=== PATIENT | female | born 1980 | race Caucasian/White ===

== ENCOUNTER → 2017-08-28 | Day surgery (SDC) | payer OTHER ==
[~2017-08-28] VITALS: Ht 162.5 cm; Wt 96.2 kg
[~2017-08-28] MED LIST: PERCOCET 325 MG1 TA2 PO; PRILOSEC40 MG PO; ZYRTEC10 MG PO
--- NOTE | ~2017-08-28 | O ---
[place], [place] OPERATIVE NOTE NAME: SUZETTE CONNORS UNIT #: [id number] ROOM: DOCTOR: LANETTE PHILLIP DPM BIRTHDATE: [birth year] DOS: 08/28/2017 SURGEON: Lanette Phillip DPM PREOPERATIVE DIAGNOSIS: Painful verruca 4 lesions, left foot. POSTOPERATIVE DIAGNOSIS: Painful verruca 4 lesions, left foot. PROCEDURE: Excision of verruca 4 lesions, left foot. ANESTHESIA: LMAC. INJECTABLES: 8 mL of 0.5% Marcaine plain. ESTIMATED BLOOD LOSS: 1 mL. COMPLICATIONS: None. PATHOLOGY: 4 lesions, left heel. DESCRIPTION OF PROCEDURE: After appropriate preoperative evaluation, the patient was brought in the OR and placed on the OR table in supine position. Anesthesia was then administered per anesthesia record. Next, the left foot and ankle were prepped and draped in usual sterile manner and left foot was lowered to the surgical field. Attention directed to plantar left heel where there was noted to be 4 lesions present. At this time, 8 mL of 0.5% Marcaine plain was infiltrated in the area for in-field block fashion. Next, using a 15 blade and pickup, the areas were circumscribed and removed down to the level of the basement membrane. A Bovie was used to cauterize these areas and a curette was used to remove any necrotic tissue. The areas were then cauterized again. The 4 lesions removed completely and again taking care not to puncture through the basement membrane. Adaptic, 4 x 4s, and Kerlix was applied to the area. The patient tolerated procedure and anesthesia well and left the OR with vital signs stable and intact and transferred to the recovery room. She will follow up in the office in 1 week's time. Start daily dressing changes with antibiotic ointment and a light dressing on Monday. Advil or Tylenol as needed for discomfort. [place], [place] OPERATIVE NOTE NAME: SUZETTE CONNORS EDIT #: [id number] UNIT #: [id number] ROOM: DOCTOR: LANETTE PHILLIP DPM BIRTHDATE: [birth year] LANETTE PHILLIP DPM CM:OPRECORD:OPERATIVE NOTE 1200 [id number] LANETTE PHILLIP DPM 09/04/17 0838 interface
[2017-08-28 11:55] VITALS: BP 107/66
[2017-08-28 12:10] VITALS: BP 115/81
[2017-08-28 12:26] VITALS: BP 115/86
== END | disposition home or self-care (01) ==
LOC: SDC 08-23 10:15
DX: B07.0 Plantar wart (principal); Z88.0 Allergy status to penicillin; K21.9 Gastro-esophageal reflux disease without esophagitis; Z90.710 Acquired absence of both cervix and uterus; Z79.899 Other long term (current) drug therapy; F17.210 Nicotine dependence, cigarettes, uncomplicated

== ENCOUNTER 2019-11-24 23:45 | Emergency (ER) | payer BC ==
[~2019-11-24] VITALS: Ht 162.5 cm; Wt 81.6 kg
[2019-11-25 01:04] LABS: BASO % 0.4 % (0.0-1.0); EOS # 0.2 10*3/uL (0.0-0.4); EOS % 1.6 % (1.0-4.0); LYMPH # 2.5 10*3/uL (1.3-4.4); LYMPH % 26.3 % (27.0-41.0); MEAN CELL VOLUME 93.1 fl (81.0-99.0); MEAN CORPUSCULAR HGB 30.5 pg (27.0-31.0); MEAN CORPUSCULAR HGB CONC 32.8 g/dl (33.0-37.0); MEAN PLATELET VOLUME 10.3 fl (9.6-12.3); MONO # 0.4 10*3/uL (0.1-1.0); MONO % 4.7 % (3.0-9.0); NEUT # 6.2 10*3/uL (2.3-7.9); NEUT % 66.7 % (47.0-73.0); PLATELET COUNT AUTOMATED 253 10*3/uL (130-400); RED BLOOD COUNT 4.62 10*6/uL (4.10-5.10); RED CELL DISTRI WIDTH 13.1 % (0-14.5); WHITE BLOOD COUNT 9.3 10*3/uL (4.8-10.8)
[2019-11-25 01:07] LABS: LIPASE 175 U/L (73-393)
[2019-11-25 01:18] LABS: ALBUMIN 3.5 gm/dl (3.1-4.5); ALKALINE PHOSPHATASE 75 U/L (45-117); BUN 13 mg/dl (7-24); CHLORIDE 108 mmol/L (98-107); CREATININE 0.81 mg/dL (0.55-1.02); POTASSIUM 3.9 mmol/L (3.5-5.1); SGOT/AST 14 IU/L (3-35); SGPT/ALT 30 U/L (12-78); SODIUM 141 mmol/L (136-145); TOTAL PROTEIN 6.8 gm/dL (6.4-8.2)
[2019-11-25 03:15] LABS: BILIRUBIN NEGATIVE (NEGATIVE); BLOOD NEGATIVE (NEGATIVE); CLARITY CLOUDY (CLEAR); COLOR YELLOW (YELLOW); GLUCOSE NEGATIVE (NEGATIVE); KETONE NEGATIVE (NEGATIVE); NITRITE NEGATIVE (NEGATIVE); PH 6.5 (5.0-9.0); SPECIFIC GRAVITY 1.015 (1.005-1.030); UROBILINOGEN 0.2 E.U./dl (0.2-1.0)
[2019-11-25 03:19] LABS: LEUKO ESTERASE TRACE (NEGATIVE)
== END 2019-11-25 08:11 | disposition home or self-care (01) ==
LOC: ED 23:45
PROVIDERS: Nurse Practitioner Family
DX: D21.9 Benign neoplasm of connective and other soft tissue, unspecified (principal); K21.9 Gastro-esophageal reflux disease without esophagitis; Z88.0 Allergy status to penicillin; Z79.899 Other long term (current) drug therapy

== ENCOUNTER 2024-11-26 00:21 | Emergency (ER) | payer OTHER ==
[~2024-11-26] VITALS: Ht 162.5 cm; Wt 90.7 kg
[2024-11-26] MEDS ORDERED: Ondansetron Hydrochloride 4 MG TAB SL ONE (01:15)
[2024-11-26] MEDS ORDERED: Acetaminophen/Hydrocodone 5 MG/325 MG TABLET PO ONE (01:15)
[2024-11-26] MEDS ORDERED: HYDROCODONE-AC1 EAC1 PO (04:03)
[2024-11-28] MEDS ORDERED: IBU800 MG PO (12:48)
== END 2024-11-26 04:34 | disposition home or self-care (01) ==
LOC: ED 00:21
DX: S52.041A Displaced fracture of coronoid process of right ulna, initial encounter for closed fracture (principal); S52.101A Unspecified fracture of upper end of right radius, initial encounter for closed fracture; Z88.0 Allergy status to penicillin; W19.XXXA Unspecified fall, initial encounter; Y93.89 Activity, other specified; Y92.89 Other specified places as the place of occurrence of the external cause; Y99.8 Other external cause status

== ENCOUNTER → 2024-11-27 | Outpatient (CLI) | payer OTHER ==
[~2024-11-27] MED LIST changes: +HYDROCODONE-AC1 EAC1 PO; +IBU800 MG PO
== END | disposition home or self-care (01) ==
LOC: CT 11:25
PROVIDERS: ATTEND Orthopaedic Surgery
DX: S52.091A Other fracture of upper end of right ulna, initial encounter for closed fracture (principal); M79.89 Other specified soft tissue disorders; X58.XXXA Exposure to other specified factors, initial encounter; Y93.89 Activity, other specified; Y92.89 Other specified places as the place of occurrence of the external cause; Y99.8 Other external cause status

== ENCOUNTER → 2024-12-03 | Day surgery (SDC) | payer OTHER ==
[2024-11-29 17:27] LABS: BUN 12 mg/dl (9-23)
[~2024-12-03] VITALS: Ht 162.5 cm; Wt 90.7 kg
[~2024-12-03] MED LIST changes: +ACETAMINOPHEN 100 ML IV ONE; +Dexamethasone Sodium Phospha 4 MG/ML VIAL IV ONE; +LIDOCAINE HCL/EPINEPHRINE 50 ML VIAL ONE; +Lidocaine Hydrochloride 5 ML VIAL IV ONE; +Midazolam Hydrochloride 2 MG/2 ML VIAL IV ONE; +Ondansetron Hydrochloride 4 MG/2 ML VIAL IV ONE; +PROPOFOL 200 MG/20 ML VIAL IV ONE; +Phenylephrine Hydrochloride 1 MG/10 ML SYRINGE IV ONE; +Ropivacaine Hydrochloride 5 MG/ML 20 ML AMP IJ ONE; +SEVOFLURANE 250 ML BOT INH ONE; +SODIUM CHLORIDE 0.9% 1,000 ML IV ONE; +SODIUM CHLORIDE 0.9% 1,000 ML IV SCH
[2024-12-03 07:30] VITALS: BP 111/74
[2024-12-03 11:26] VITALS: BP 121/71
[2024-12-03 11:41] VITALS: BP 131/92
[2024-12-03 11:56] VITALS: BP 113/55
[2024-12-03 12:11] VITALS: BP 118/66
[2024-12-03 12:26] VITALS: BP 133/87
== END | disposition home or self-care (01) ==
LOC: SDC 11-29 13:15
PROVIDERS: ATTEND Orthopaedic Surgery
DX: S52.021A Displaced fracture of olecranon process without intraarticular extension of right ulna, initial encounter for closed fracture (principal); S52.201A Unspecified fracture of shaft of right ulna, initial encounter for closed fracture; S52.124A Nondisplaced fracture of head of right radius, initial encounter for closed fracture; K21.9 Gastro-esophageal reflux disease without esophagitis; G43.909 Migraine, unspecified, not intractable, without status migrainosus; F17.200 Nicotine dependence, unspecified, uncomplicated; Z88.0 Allergy status to penicillin; Z79.1 Long term (current) use of non-steroidal anti-inflammatories (NSAID); Z79.899 Other long term (current) drug therapy; X58.XXXA Exposure to other specified factors, initial encounter; Y93.89 Activity, other specified; Y92.89 Other specified places as the place of occurrence of the external cause; Y99.8 Other external cause status

== ENCOUNTER → 2024-12-11 | Outpatient (CLI) | payer OTHER ==
[~2024-12-11] MED LIST changes: -ACETAMINOPHEN 100 ML IV ONE; -Dexamethasone Sodium Phospha 4 MG/ML VIAL IV ONE; -LIDOCAINE HCL/EPINEPHRINE 50 ML VIAL ONE; -Lidocaine Hydrochloride 5 ML VIAL IV ONE; -Midazolam Hydrochloride 2 MG/2 ML VIAL IV ONE; -Ondansetron Hydrochloride 4 MG/2 ML VIAL IV ONE; -PROPOFOL 200 MG/20 ML VIAL IV ONE; -Phenylephrine Hydrochloride 1 MG/10 ML SYRINGE IV ONE; -Ropivacaine Hydrochloride 5 MG/ML 20 ML AMP IJ ONE; -SEVOFLURANE 250 ML BOT INH ONE; -SODIUM CHLORIDE 0.9% 1,000 ML IV ONE; -SODIUM CHLORIDE 0.9% 1,000 ML IV SCH
== END | disposition home or self-care (01) ==
LOC: ORTHO 03:37
PROVIDERS: ATTEND Orthopaedic Surgery
DX: S52.124D Nondisplaced fracture of head of right radius, subsequent encounter for closed fracture with routine healing (principal); M25.421 Effusion, right elbow; X58.XXXD Exposure to other specified factors, subsequent encounter

== ENCOUNTER → 2024-12-18 | Outpatient (CLI) | payer OTHER | END | disposition home or self-care (01) | LOC: ORTHO 02:36 | PROVIDERS: ATTEND Orthopaedic Surgery | DX: S52.001D Unspecified fracture of upper end of right ulna, subsequent encounter for closed fracture with routine healing (principal); S52.124D Nondisplaced fracture of head of right radius, subsequent encounter for closed fracture with routine healing; X58.XXXD Exposure to other specified factors, subsequent encounter ==

== ENCOUNTER → 2025-01-15 | Outpatient (CLI) | payer OTHER | END | disposition home or self-care (01) | LOC: ORTHO 00:45 | PROVIDERS: ATTEND Orthopaedic Surgery | DX: S52.124D Nondisplaced fracture of head of right radius, subsequent encounter for closed fracture with routine healing (principal); M25.421 Effusion, right elbow; Z98.890 Other specified postprocedural states; X58.XXXD Exposure to other specified factors, subsequent encounter ==

== ENCOUNTER → 2025-02-26 | Outpatient (CLI) | payer OTHER | END | disposition home or self-care (01) | LOC: ORTHO 02:05 | PROVIDERS: ATTEND Orthopaedic Surgery | DX: S52.124D Nondisplaced fracture of head of right radius, subsequent encounter for closed fracture with routine healing (principal); X58.XXXD Exposure to other specified factors, subsequent encounter ==